=== PATIENT | female | born 1955 | race Caucasian/White ===

== ENCOUNTER → 2018-01-16 11:01 | Outpatient (CLI) | payer OTHER, SELFPAY ==
[2018-01-16 13:18] LABS: CRP < 2.90 mg/L (0.0-3.0); Thyroid Stim Hormone (TSH) 1.15 uIU/mL (0.358-3.74)
[2018-01-17 16:11] LABS: Endomysial Antibody IgA Negative (Negative)
[2018-01-18 08:16] LABS: Immunoglobulin A 328 mg/dL (87-352); t-Transglutaminase IgA <2 U/mL (0-3)
== END ==
PROVIDERS: Family Provider Family Medicine; PCP Family Medicine; Visit Provider Internal Medicine Gastroenterology
DX: R19.7 Diarrhea, unspecified (principal)
CPT/HCPCS: 36415; 82784; 83516; 84436; 84443; 86140; 86255